=== PATIENT | male | born 1950 | race Caucasian/White ===

== ENCOUNTER 2019-06-18 19:54 | Emergency (ER) | payer OTHER ==
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
[2019-06-18] MEDS ORDERED: NAPR220C12 PO (20:05)
[2019-06-18] MEDS ORDERED: MULT1CAP59 PO (20:05)
[2019-06-18] MEDS ORDERED: ATR80PT PO (20:05)
[2019-06-18] MEDS ORDERED: CHOL10005 PO (20:05)
[2019-06-18 20:08] LABS: PLATELET COUNT, AUTOMATED 255 K/uL (150-450)
--- NOTE | 2019-06-18 20:23 | EKG ---
FACILITY: [facility] - [place] PATIENT NAME: ALIRIO العلي : [id number] MR: [id number] V: [id number] EXAM DATE: ORDERING PHYSICIAN: RUBY VASQUEZ TECHNOLOGIST: SILVANO Test Reason : NEURO Blood Pressure : / mmHG Vent. Rate : 076 BPM Atrial Rate : 076 BPM P-R Int : 172 ms QRS Dur : 074 ms QT Int : 410 ms P-R-T Axes : 051 023 049 degrees QTc Int : 461 ms Sinus rhythm Nonspecific ST findings inferior leads No previous ECGs available Confirmed by SALONI FUCHS ([id number] on 06/19/2019 6:31:07 AM Referred By: Confirmed By:SALONI FUCHS
[2019-06-18 21:00] VITALS: BP 112/66
--- NOTE | 2019-06-18 21:20 | RADIOLOGY IMAGING REPORT ---
FACILITY: [facility] - [place] PATIENT NAME: Justin Pascual : 1950 MR: [id number] V: [id number] EXAM DATE: ORDERING PHYSICIAN: RUBY VASQUEZ TECHNOLOGIST: [place] [facility] [place] Patient: Justin Pascual : 1950 Visit/Account:[id number] Date of Sevice: 06/18/2019 EXAMINATION: Head CT without intravenous contrast HISTORY: Syncope for one day. General weakness. COMPARISON: None. TECHNIQUE: Contiguous axial images were obtained from the skull base to the vertex without intraven ous contrast. Sagittal and coronal reformatted images are also submitted. One of the following dose optimization techniques was utilized in the performance of this exam: Autom ated exposure control; adjustment of the mA and/or kV according to the patient's size; or use of an i terative reconstruction technique. Specific details can be referenced in the facility's radiology C T exam operational policy. FINDINGS: Brain and intracranial structures: Ventricles, sulci, and cisterns are normal in size for patient's age. Hernandez-white matter differentiation is maintained. No midline shift, acute hemorrhage, acute infarct, or mass. Vessels: Mild calcified plaque of the carotid siphons. Calvarium / scalp: Negative. Skull base / visualized face: Rightward deviation of the nasal septum. Visualized sinuses / orbits: Trace mucosal thickening in the paranasal sinuses. IMPRESSION: No CT evidence of acute intracranial pathology. Report Dictated By: Waqar Muñoz MD at 06/18/2019 9:09 PM Report E-Signed By: Waqar Muñoz MD at 06/18/2019 9:13 PM WSN:[id number]
--- NOTE | 2019-06-18 21:48 | RADIOLOGY IMAGING REPORT ---
FACILITY: [facility] PATIENT NAME: Justin Pascual : 1950 MR: [id number] V: [id number] EXAM DATE: ORDERING PHYSICIAN: RUBY VASQUEZ TECHNOLOGIST: Location: [facility] - [place] Patient: Justin Pascual : 1950 Visit/Account:[id number] Date of Sevice: 06/18/2019 Examination: CHEST SINGLE AP Comparison: None. History: syncope weakness Findings: Cardiac and hilar contour size is normal. No consolidation, nodule, or evidence of acute pe ribronchial inflammation. No pneumothorax, edema, or effusion. Osseous structures are intact. IMPRESSION: No findings of acute cardiopulmonary disease. Report Dictated By: Conner Hahn MD at 06/18/2019 9:38 PM Report E-Signed By: Conner Hahn MD at 06/18/2019 9:40 PM WSN:[id number]
== END 2019-06-18 21:32 | disposition home or self-care (01) ==
LOC: ER 20:03
DX: R55 Syncope and collapse (principal); S61.011A Laceration without foreign body of right thumb without damage to nail, initial encounter; E16.2 Hypoglycemia, unspecified; R53.1 Weakness
CPT/HCPCS: 36416; 70450; 71045; 80320; 81001; 82040; 82247; 82310; 82374; 82435; 82550; 82565; 82947; 82948; 84075; 84132; 84155; 84295; 84450; 84460; 84484; 84520; 85025; 93005; 99284

== ENCOUNTER → 2019-06-18 | Outpatient (CLI) | payer OTHER ==
[~2019-06-18] MED LIST: ATR80PT PO; CHOL10005 PO; MULT1CAP59 PO; NAPR220C12 PO
== END ==
LOC: AMB 17:49
PROVIDERS: ATTEND Nurse Practitioner
DX: R53.1 Weakness (principal); R23.0 Cyanosis
CPT/HCPCS: A0425; A0427